=== PATIENT | male | born 1985 | race American Indian/Alaskan Native ===

== ENCOUNTER 2016-12-01 01:55 | Emergency (ER) | payer SELFPAY ==
[2016-12-01 02:13] VITALS: BP 132/86
[2016-12-01] MEDS ORDERED: NACL 0.9% 1000 ML 1,000 ML IV ONE (02:13)
[2016-12-01 02:43] LABS: Basophils % (Auto) 0.5 % (0.0-1.8); Eosinophils % (Auto) 1.5 % (0.0-4.3); Hematocrit 44.5 % (35.5-45.6); Hemoglobin 14.5 gm/dl (11.8-15.2); Mean Corpuscular HGB Conc 33 % (32-34); Mean Corpuscular Hemoglobin 27 pg (28-32); Mean Corpuscular Volume 81 fl (84-94); Platelet Count 164 K/mm3 (140-440); Red Blood Count 5.46 M/mm3 (3.65-5.03); Red Cell Distribution Width 13.8 % (13.2-15.2); White Blood Count 6.7 K/mm3 (4.5-11.0)
[2016-12-01 03:05] LABS: Alanine Aminotransferase 21 units/L (7-56); Albumin 4.8 g/dL (3.9-5); Albumin/Globulin Ratio 1.5 %; Alkaline Phosphatase 66 units/L (35-129); Anion Gap 18 mmol/L; Blood Urea Nitrogen 13 mg/dL (9-20); Calcium 9.7 mg/dL (8.4-10.2); Carbon Dioxide 26 mmol/L (22-30); Chloride 97.7 mmol/L (98-107); Glucose 91 mg/dL (75-100); Lipase 32 units/L (13-60); Potassium 3.9 mmol/L (3.6-5.0); Sodium 138 mmol/L (137-145)
[2016-12-01 03:11] LABS: INR 0.93 (0.87-1.13)
[2016-12-01 03:12] LABS: Partial Thromboplastin Time 33.6 Sec. (24.2-36.6)
--- NOTE | 2016-12-02 09:43 | ED Elopement Review ---
ED Pt Elopement review - Results review Lab results: Laboratory Tests 12/01/16 12/01/16 12/01/16 02:18 02:18 02:18 WBC 6.7 RBC 5.46 H Hgb 14.5 Hct 44.5 MCV 81 L MCH 27 L MCHC 33 RDW 13.8 Plt Count 164 Lymph % (Auto) 47.3 H [place] % (Auto) 5.7 Eos % (Auto) 1.5 Baso % (Auto) 0.5 Lymph # 3.2 [place] # 0.4 Eos # 0.1 Baso # 0.0 Seg Neutrophils % 45.0 Seg Neutrophils # 3.0 PT 12.9 INR 0.93 APTT 33.6 Sodium 138 Potassium 3.9 Chloride 97.7 L Carbon Dioxide 26 Anion Gap 18 BUN 13 Creatinine 1.0 Estimated GFR > 60 BUN/Creatinine Ratio 13.00 Glucose 91 Calcium 9.7 Total Bilirubin 0.70 AST 29 ALT 21 Alkaline Phosphatase 66 Total Protein 8.0 Albumin 4.8 Albumin/Globulin Ratio 1.5 Lipase 32 Blood Type HARRISON Antibody Screen 12/01/16 02:18 WBC RBC Hgb Hct MCV MCH MCHC RDW Plt Count Lymph % (Auto) [place] % (Auto) Eos % (Auto) Baso % (Auto) Lymph # [place] # Eos # Baso # Seg Neutrophils % Seg Neutrophils # PT INR APTT Sodium Potassium Chloride Carbon Dioxide Anion Gap BUN Creatinine Estimated GFR BUN/Creatinine Ratio Glucose Calcium Total Bilirubin AST ALT Alkaline Phosphatase Total Protein Albumin Albumin/Globulin Ratio Lipase Blood Type A NEGATIVE H[place]ISON Antibody Screen Negative - Call Back decision Pt Call Back Decision: No action required
== END 2016-12-01 06:36 ==
LOC: ED 01:55
DX: R51 Headache (principal); K59.00 Constipation, unspecified; Z53.21 Procedure and treatment not carried out due to patient leaving prior to being seen by health care provider
CPT/HCPCS: 36415; 80053; 83690; 85025; 85610; 85730; 86850; 86900; 86901; 93005; 93010